=== PATIENT | male | born 2000 | race Caucasian/White ===

== ENCOUNTER 2020-05-07 16:03 | Inpatient (IN) | payer OTHER ==
[2020-05-07 16:19] VITALS: BMI 24.2
[2020-05-07] MEDS ORDERED: VANCOMYCIN 1 GM in D5W (PRE-DOCKED) 1,000 MG/250 ML IVPB ONE (17:12)
[2020-05-07] MEDS ORDERED: PIPERACILLIN/TAZOB 3.375 GM 3.375 GM in DEXTROSE 5%-WATER - 50 ML IVPB ONE (17:13)
[2020-05-07] MEDS ORDERED: metroNIDAZOLE 250 MG TABLET PO ONE (17:14)
[2020-05-07] MEDS ORDERED: morphine CARPU-JECT 2 MG/1 ML DISP.SYRIN IVPUSH ONE (17:21)
[2020-05-07] MEDS ORDERED: ACETAMINOPHEN 1000 MG/100 ML VIAL (NON FORMULARY) IVPB ONE (17:33)
[2020-05-07] MEDS ORDERED: metroNIDAZOLE 250 MG TABLET ONE (17:34)
[2020-05-07] MEDS ORDERED: ACETAMINOPHEN INJECTION 100 ML IVPB ONE (17:34)
[2020-05-07] MEDS ORDERED: VANCOMYCIN 1 GRAM (PRE-DOCKED) 1,000 MG/250 ML BAG IVPB ONE (17:34)
[2020-05-07] MEDS ORDERED: PIPERACILLIN/TAZOB 3.375 GM 3.375 GM/50 ML BAG IVPB ONE (17:35)
[2020-05-07 18:25] LABS: BASO % 0.1 % (0-2.0); EOS % 0.2 % (0-4.5); HEMATOCRIT 42.9 % (35.4-49); HEMOGLOBIN 14.4 GM/dL (11.7-16.9); LYMPH % 6.6 % (8-40); MCH 27.3 pg (25.7-33.7); MCHC 33.5 g/dl (32.0-35.9); MEAN CELL VOLUME 81.6 fl (80-96); MEAN PLT VOLUME 9.4 fl (7.5-11.1); MONO % 9.6 % (3.8-10.2); NEUT % 83.5 % (42.8-82.8); PLATELET COUNT 224 K/MM3 (134-434); RBC 5.26 M/mm3 (4.00-5.60); WHITE BLOOD COUNT 17.6 K/mm3 (4.0-10.0)
[2020-05-07 18:34] LABS: POTASSIUM 4.1 mmol/L (3.5-5.1)
[2020-05-07 18:37] LABS: CALCIUM 8.8 mg/dL (8.5-10.1)
[2020-05-07 18:38] LABS: ALBUMIN 3.8 g/dl (3.4-5.0); BLOOD UREA NITROGEN 12.8 mg/dL (7-18)
[2020-05-07 18:43] LABS: BILIRUBIN,TOTAL 2.2 mg/dL (0.2-1); TOT PROT 7.9 g/dl (6.4-8.2)
[2020-05-07] MEDS ORDERED: SODIUM CHLORIDE 0.9% 500 ML INFUS.BAG IV ONE (19:24)
[2020-05-07 21:03] VITALS: BP 114/51; PULSE 104; TEMP 97.8
[2020-05-07 21:31] LABS: INR 1.18 (0.83-1.09); PROTHROMBIN TIME (PATIENT) 14.4 SEC (9.7-13.0)
== END 2020-05-07 22:34 | disposition home or self-care (01) | DRG 383 ==
LOC: JERFT 16:03 → JER 16:03 → JERBED 19:09
PROVIDERS: ADMIT Hospitalist; ATTEND Hospitalist
PROC: 0J990ZX Drainage of Buttock Subcutaneous Tissue and Fascia, Open Approach, Diagnostic (ICD-10-PCS; principal; 2020-05-07)
DX: L05.01 Pilonidal cyst with abscess (principal); R00.0 Tachycardia, unspecified; D72.829 Elevated white blood cell count, unspecified
CPT/HCPCS: 36415; 76705-TC; 80053; 85025; 85610; 86850; 86900; 86901; 87040; 87070; 87076; 87205; 99285-25; J0131

== ENCOUNTER 2020-05-09 10:01 | Emergency (ER) | payer OTHER ==
[2020-05-09 10:05] VITALS: BP 161/68; PULSE 114; TEMP 98; BMI 35.0
== END 2020-05-09 11:21 | disposition home or self-care (01) ==
LOC: JERFT 10:01
DX: Z48.02 Encounter for removal of sutures (principal)
CPT/HCPCS: 99281-25